=== PATIENT | female | born 1980 | race Caucasian/White ===

== ENCOUNTER 2020-08-26 15:08 | Emergency (ER) | payer SELFPAY ==
--- NOTE | ~2020-08-26 | XR_ITS ---
EXAMINATION: XR hand LT min 3V EXAM DATE: 08/26/2020 15:58 INDICATION: Initial encounter following injury, with pain of the left hand, 3rd and 4th fingers. TECHNIQUE: Left hand frontal, lateral and oblique projections obtained and reviewed. There is no thomas or study for comparison. FINDINGS: At the volar base of the left 3rd middle phalanx on the lateral projection there is a slive r-like density which is possibly an acute closed posttraumatic nondisplaced avulsion fracture. Is the re tenderness at the volar aspect of the 3rd proximal interphalangeal joint? This finding has been in dicated, marked on the examination for review, clinical correlation. Left metacarpal bones are unremarkable. There is no subcutaneous gas. The soft tissue is unremarkab le. There are no radiopaque foreign bodies. IMPRESSION: Suspicion of left 3rd middle phalangeal volar plate avulsion fracture. Reviewed, dictated and finalized at location A. IMPRESSION: Suspicion of left 3rd middle phalangeal volar plate avulsion fractu re.
[2020-08-26 15:28] VITALS: BP 112/61; PULSE 99; RESP 20; TEMP 37.1; O2SAT 100
--- NOTE | 2020-08-26 15:42 | ED.UPPEXIN ---
HPI - Extremity Injury (Upper) General Chief Complaint: Extremity Injury, Upper Stated Complaint: Swollen left Hand Time Seen by Provider: 08/26/20 15:35 Source: patient and RN notes reviewed Mode of arrival: ambulatory Limitations: no limitations History of Present Illness HPI narrative: Patient presents today complaining of left 4th finger and left hand injury. States she slipped in the rain in her yard yesterday and fell backwards onto her hand, hyperextending her fingers. She does report some tingling to her fingers intermittently. Currently rates her pain 3/10, but this increases significantly with any movement of the hand or fingers. She has been taking ibuprofen and using ice with mild relief. MD complaint: injury to: left and hand Related Data Allergies Allergy/AdvReac Type Severity Reaction Status Date / Time No Known Allergies Allergy Verified 08/26/20 15:27 Review of Systems Review of Systems: Narrative: CONSTITUTIONAL: Denies body aches, fever, chills, or sweats. EYES: Denies visual changes, redness, or discharge. ENT: Denies rhinorrhea, congestion, sore throat, or otalgia. CARDIOVASCULAR: Denies chest pain, palpitations, or edema. RESPIRATORY: Denies cough or dyspnea. GASTROINTESTINAL: Denies abdominal pain, nausea, vomiting, or diarrhea. GENITOURINARY: Denies dysuria or hematuria. SKIN: Denies rash, itching, or wounds. MUSCULOSKELETAL: Denies back pain,or myalgia.+ Left hand injury NEUROLOGIC: Denies headache, numbness, tingling, or weakness. PSYCH: Denies depression or anxiety. PMFSH Comments At time of signature, I have reviewed and agree with nursing past medical, surgical, social and family history unless otherwise noted. Please see nursing chart for further information. There is no relevant family history pertinent to the presenting complaint Exam Narrative: Exam Narrative: GENERAL: Well-appearing, well-nourished, and in no acute distress. HEAD: Normocephalic, atraumatic. EYES: EOMI. No redness or drainage. Conjunctivae normal. ENT: Mucous membranes pink and moist. NECK: Normal AROM. CHEST: No respiratory distress. EXTREMITIES: Left hand:Tenderness and ecchymosis of the 4th finger on the palmar and dorsal aspects. This extends down the metacarpal as well. Tenderness to the second, third, and fifth metacarpals as well. Decreased range of motion of the 4th finger due to pain, but will extend passively. Distal sensation intact in all fingers. Capillary refill normal. Radial pulse normal. No tenderness to the wrist. (After xray reading, patient is not tender along the 3rd finger or PIP) SKIN: Warm, dry, no rash. Capillary refill normal. Normal skin turgor. NEURO: No focal deficits. Alert and oriented x3. Gait steady. PSYCH: Normal affect. No signs of depression or anxiety. Course Vital Signs Vital signs: Vital Signs Temperature 98.8 F 08/26/20 15:28 Pulse Rate 99 08/26/20 15:28 Respiratory Rate 20 08/26/20 15:28 Blood Pressure 112/61 08/26/20 15:28 Pulse Oximetry 100 08/26/20 15:28 Temperature 98.8 F 08/26/20 15:28 Pulse Rate 99 08/26/20 15:28 Respiratory Rate 20 08/26/20 15:28 Blood Pressure 112/61 08/26/20 15:28 Pulse Oximetry 100 08/26/20 15:28 Reviewed MDM - Extremity Injury (Upper) Differential Diagnosis Differential diagnosis: Likely finger sprain, fracture of hand and other (Finger fracture) Imaging Data Radiologist's impression: ITS Impressions Hand X-Ray 08/26/20 16:07 IMPRESSION: Suspicion of left 3rd middle phalangeal volar plate avulsion fracture. Critical Care Time Critical Care Time Critical Care Time: No Discharge Plan Discharge Clinical Impression: Other sprain of left ring finger, initial encounter Contusion of hand, left Qualifiers: Encounter type: initial encounter Qualified Code(s): S60.222A - Contusion of left hand, initial encounter Patient Disposition: Home, Self-Care Condition: St
== END 2020-08-26 16:44 | disposition home or self-care (01) ==
PROVIDERS: Emergency Provider Nurse Practitioner; PCP Emergency Medicine
DX: S63.695A Other sprain of left ring finger, initial encounter (principal); W01.0XXA Fall on same level from slipping, tripping and stumbling without subsequent striking against object, initial encounter
CPT/HCPCS: 73130; 99213; A4565; G0463